=== PATIENT | female | born 1985 | race Hispanic/Latino ===

== ENCOUNTER 2017-03-05 19:37 | Emergency (ER) | payer OTHER ==
[2017-03-05 19:47] VITALS: BP 118/76; PULSE 93; RESP 16; TEMP 97.9; O2SAT 97
[2017-03-05] MEDS ORDERED: Sodium Chloride 0.9% 1,000 ML IV SCH (20:30)
--- NOTE | 2017-03-05 20:33 | ED PDOC ---
HPI: Chest Pain Chief Complaint (Provider): Chest Pain History Per: Patient History/Exam Limitations: no limitations Onset/Duration Of Symptoms: Hrs (12 in the afternoon) Current Symptoms Are (Timing): Still Present Severity: Severe Quality: Tightness Modifying Factors: None Exacerbating Factors: None Alleviating Factors: None - Risk Factors TAD Risk Factors: Pos: Hypertension <Neto Levy - Last Filed: 03/05/17 22:43> <Grant Escoto - Last Filed: 03/05/17 22:47> Time Seen by Provider: 03/05/17 19:48 Chief Complaint (Nursing): Chest Pain Additional Complaint(s): 31 y.o. female here for evaluation of chest pain. Pt. states chest pain begain in the afternoon at approximately at 12p.m. The chest pain was present on waking up. Pt. subsequently completed her routine. Her routine was to have lunch consisting of garlic bread and pasta. Pain was still present and then took 1 tablet of Ibuprofen 800mg. Pt. then went to the laundromat. In the course of doing laundry patient had Pizza from [employer]. Pt. states pain was still present did not get worse or better. After returning home she decided to come to the emergency room because pain was not going away. Pt. states she has not had this type of pain before. Pt. states pain does not get worse with exertion. Pt. does state had one episode of diarrhea yesterday and 1 episode of loose non-bloody bowel movement today. Pt. also states had Left shoulder repair with nerve block on February 15, 2017 and states her arm and shoulder is getting better but has discomfort sometimes. (Neto Levy) Supervising Attending Note - Supervising Attending Note The Documented history was done by the: Physician Supervisor Hand Silvering, Attending Physician The documented physical exam was done by the: Physician Supervisor Hand Silvering, Attending Physician The documented procedures were done by the: Physician Supervisor Hand Silvering, Attending Physician - Attestation: I have personally seen and examined this patient.: Yes I have fully participated in the care of the patient.: Yes I have reviewed all pertinent clinical information: Yes <Grant Escoto - Last Filed: 03/05/17 22:47> Past Medical History - Medical History PMH: Anxiety, Asthma, Depression, HTN - Surgical History Surgical History: Cholecystectomy Other surgeries: Left Shoulder repair. Left Knee repair - Family History Family History: States: Unknown Family Hx Other Family History: Not contributory - Living Arrangements Living Arrangements: With Family - Social History Current smoker - smoking cessation education provided: Yes (Social) Alcohol: Social Drugs: Denies - Immunization History Hx Tetanus Toxoid Vaccination: No Hx Influenza Vaccination: Yes Hx Pneumococcal Vaccination: No <Neto Levy - Last Filed: 03/05/17 22:43> <Grant Escoto - Last Filed: 03/05/17 22:47> Vital Signs: Last Vital Signs Temp 97.9 F 03/05/17 19:44 Pulse 93 H 03/05/17 19:44 Resp 16 03/05/17 19:44 BP 118/76 03/05/17 19:44 Pulse Ox 97 03/05/17 22:43 - Home Medications Home Medications: Ambulatory Orders Medication Instructions Recorded Naproxen [Naprosyn] 1 tab PO BID PRN #25 tab 08/06/15 - Allergies Allergies/Adverse Reactions: Allergies Allergy/AdvReac Type Severity Reaction Status Date / Time No Known Allergies Allergy Verified 03/05/17 19:49 PAULINA Risk Score for UA/NSTEMI - PAULINA Risk Score Age > 64: NO 3 or more CAD Risk Factors: YES Known CAD (Stenosis greater than 50%): NO Aspirin use in past 7 days: NO Severe Angina: NO EKG ST changes greater than 0.5mm: NO Positive Cardiac Marker: NO PAULINA Score: 1 Risk %: 5% <Girish Levyhif - Last Filed: 03/05/17 22:43> Curb-65 Severity Score - CURB-65 Severity Score Confusion: No Bun >19mg/dl (>7mmol/L): No Respiratory Rate greater than/equal to 30: No Systolic BP <90 or Diastolic BP less than/equal 60mmHg: No Age >64: No Curb-65 Score: 0 Percentage 30-day mortality: 0.6% <Neto Levy - Last Filed: 03/05/17 22:43> Wells Criteria for PE - Wells Criteria for Pulmonary Embolism Clinical Signs and Symptoms of DVT: No P.E is #1 Diagnosis, or Equally Likely: No Heart Rate >100: No Immobilization at least 3 days;Surgery previous 4 weeks: Yes Previous, objectively diagnosed PE or DVT: No Hemoptysis: No Malignancy w/treatment within 6 months, or palliative: No Total Score: 1.5 <Neto Levy - Last Filed: 03/05/17 22:43> Review of Systems Constitutional: Negative for: Fever, Chills Eyes: Negative for: Pain, Vision Change ENT: Negative for: Ear Pain, Ear Discharge Cardiovascular: Positive for: Chest Pain (See HPI) Respiratory: Negative for: Cough, Shortness of Breath Gastrointestinal: Positive for: Nausea. Negative for: Vomiting, Abdominal Pain Genitourinary Female: Negative for: Dysuria, Frequency Musculoskeletal: Negative for: Neck Pain, Shoulder Pain Neurological: Negative for: Weakness, Change in Speech Psych: Negative for: Anxiety, Depression <Neto Levy - Last Filed: 03/05/17 22:43> Physical Exam - Reviewed Vital Signs Reviewed: Yes (WNL) - Physical Exam Appears: Positive for: Well (Obese ), Non-toxic, No Acute Distress Skin: Negative for: Pallor, Jaundice Eye Exam: Negative for: Conjunctival injection, Scleral icterus Neck: Positive for: Painless ROM, Supple Cardiovascular/Chest: Positive for: Regular Rate, Rhythm, Other (Tenderness to palpation of Left Sternal border ). Negative for: Murmur Respiratory: Positive for: Normal Breath Sounds. Negative for: Crackles, Wheezing Gastrointestinal/Abdominal: Positive for: Soft. Negative for: Tenderness Extremity: Negative for: Pedal Edema, Calf Tenderness Neurologic/Psych: Positive for: Alert, Oriented, Mood/Affect (Anxious appearring ) <Neto Levy - Last Filed: 03/05/17 22:43> - Laboratory Results Result Diagrams: 03/05/17 20:37 03/05/17 20:37 - ECG O2 Sat by Pulse Oximetry: 97 - Progress Re-evaluation Time: 22:34 Condition: Improved <Neto Levy - Last Filed: 03/05/17 22:43> - Laboratory Results Result Diagrams: 03/05/17 20:37 03/05/17 20:37 <Grant Escoto - Last Filed: 03/05/17 22:47> - Progress ED Course And Treament: CBC- WNL CMP- WNL Troponin- WNL D-Dimer- WNL EKG- Normal Sinus Rhythm CXR- Normal Zofran Pepcid Normal Saline Bolus (Neto Levy) Medical Decision Making <Neto Levy - Last Filed: 03/05/17 22:43> <Grant Escoto - Last Filed: 03/05/17 22:47> Medical Decision Makin y.o. female with PMHx of Type II DM, HTN, Hyper-lipidemia, and GERD on Omeprazole and Left shoulder arthroscopy with nerve block on 02/15/17 presents to the E.R. for evaluation of chest pain. Chest pain is reproducible on palpation of chest wall with significant improvement after Zofran, Pepcid, and I.V.fluids. Pt. found to have normal EKG, CXR, Troponin for discharge to home with follow up with PMD. Pt. to continue Ibuprofen 400mg PO after Omeprazole 20mg for chest wall pain. Pt. to follow up with PMD Dr. Fitch (Girish Levyhif) Disposition - Patient ED Disposition Is Patient to be Admitted: No Discussed With : Grant Escoto - Disposition Disposition: Routine/Home Disposition Time: 22:42 <Neto Levy - Last Filed: 03/05/17 22:43> Counseled Patient/Family Regarding: Studies Performed, Diagnosis <Grant Escoto - Last Filed: 03/05/17 22:47> - Clinical Impression Clinical Impression: Chest wall pain, Costochondritis - Disposition Referrals: [facility] [place] [Outside] Condition: GOOD Instructions: Chest Pain (ED)
[2017-03-05 20:40] LABS: HEMATOCRIT 37.3 % (34.0-47.0); MEAN CORPUSCULAR HEMOGLOBIN 26.1 pg (27.0-31.0); MEAN CORPUSCULAR HGB CONC 32.6 g/dL (33.0-37.0); RED CELL DISTRIBUTION WIDTH 13.1 % (11.5-14.5); WHITE BLOOD COUNT 11.8 K/uL (4.8-10.8)
[2017-03-05 20:50] LABS: ALB/GLOB RATIO 1.3 (1.0-2.1); ALKALINE PHOSPHATASE 88 U/L (38-126); ALT/SGPT 39 U/L (9-52); AST/SGOT 21 U/L (14-36); BILIRUBIN,TOTAL 0.3 mg/dl (0.2-1.3); BLOOD UREA NITROGEN 13 mg/dl (7-17); CARBON DIOXIDE 24 mmol/L (22-30); CHLORIDE 108 mmol/L (98-107); GFR AFRICAN-AMERICAN > 60; GLUCOSE,RANDOM 109 mg/dL (65-105); POTASSIUM 3.6 MMOL/L (3.6-5.0); SODIUM 142 mmol/l (132-148); TOTAL PROTEIN 7.6 G/DL (6.3-8.2)
--- NOTE | 2017-03-06 09:26 | RAD ---
HISTORY: Chest Pain COMPARISON: No prior. TECHNIQUE: Chest PA and lateral FINDINGS: LUNGS: No active pulmonary disease. PLEURA: No significant pleural effusion identified. No pneumothorax apparent. CARDIOVASCULAR: Normal. OSSEOUS STRUCTURES: No significant abnormalities. VISUALIZED UPPER ABDOMEN: Normal. OTHER FINDINGS: None. IMPRESSION: No active disease.
--- NOTE | 2017-03-06 13:13 | CARD ---
APPROVED REPORT EKG Measurement Heart [id number] <Conclusion> Sinus rhythm with marked sinus arrhythmia Otherwise normal ECG
== END 2017-03-05 23:26 | disposition home or self-care (01) ==
LOC: H.ER 19:37
DX: R07.89 Other chest pain (principal); F41.9 Anxiety disorder, unspecified; I10 Essential (primary) hypertension; J45.909 Unspecified asthma, uncomplicated; M94.0 Chondrocostal junction syndrome [Tietze]